=== PATIENT | female | born 1980 | race Caucasian/White ===

== ENCOUNTER → 2016-03-01 | Outpatient (CLI) | payer OTHER ==
--- NOTE | 2016-03-01 11:17 | US ---
Dear Dr. Lee, Thank you for sending your patient, Denice Corona, to us for an US and consultation to assess fet al anatomy. As you know, the patient is a 35 y.o. G1, P0 at 19 weeks and 0 days with an EDC of 07/26/16 based on LMP and 7 week US. Her is complicated by AMA, history of a LEEP, and uterine fibr oids. Denice has an unremarkable past medical and surgical history. 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 This is her first . The patient denies any uterine contractions, vaginal bleeding, or loss of fluid. Today, she is withou t complaints. Genetic Screening: She has had NIPT results this . US FINDINGS: Number of fetuses: 1 Placental location: Anterior, No previa Placental Cord Insertion: Central presentation: Breech Cervix: 4.5 cm without evidence of insufficiency on transvaginal US MVP: 4.1 cm The adnexa were evaluated. No pathology was seen. Right ovary: Normal Left ovary: Normal Fibroid: Left lower uterine segment fibroid immediately to the left of the internal cervical os, 5.7 x 5.6 x 4.2 cm heart rate: 146 bpm Measurements: Biparietal diameter: 39 mm, 18 weeks 0 days Head circumference: 150 mm, 18 weeks 1 days Abdominal circumference: 146 mm, 20 weeks 0 days Femur length: 30 mm, 19 weeks 1 days Humerus length: 27 mm, 18 weeks 6 days Transcerebellar diameter: 20 mm, 19 weeks 3 days Average ultrasound age: 18 weeks 6 days Estimated weight: 288 g weight percentile: 67% ANATOMY Supratentorial brain: Normal Cerebral lateral ventricle: 5 mm Posterior fossa: Normal Cisterna magna: 4 mm Nuchal fold: 3.9 mm Lip: Normal Profile: Normal Alveolar Ridge: Appears intact Spine: -- Cervical: Normal -- Thoracic: Normal -- Lumbar: Normal -- Sacral: Normal Heart: -- 4 Chamber: Normal -- Intraventricular septum: Appears intact by Color and Spectral US -- Right Outflow Tract: Normal -- Left Outflow Tract: Normal -- 3 Vessel View: Normal -- Aortic Arch: Normal -- Ductal Arch: Normal Diaphragm: Appears intact Stomach: Normal Abdominal Umbilical Cord Insertion: Normal Right kidney: Normal Left kidney: Normal Bladder: Normal Number of cord vessels: 3 Upper extremities: -- Right Arm: Normal -- Right Hand: Normal -- Left Arm: Normal -- Left Hand: Normal Lower extremities: -- Right Leg: Normal -- Right Foot: Normal, no club foot -- Left Leg: Normal -- Left Foot: Normal, no club foot IMPRESSION: 1. Anatomy: The fetus measures appropriate for gestational age, measuring a normal weight and percen tile. Visualization of the fetus today reveals no overt structural anomalies. There is evidence of no rmal amniotic fluid, and movement was seen during the examination. 2. Genetic Screening: This patient has had reassuring NIPT results this . Today, no markers of aneuploidy were seen. While her screening and US results are reassuring, we reviewed that fe sophia aneuploidy can only be definitively excluded with diagnostic testing via amniocentesis. After thi s discussion, the patient does not wish to proceed with invasive testing at this time. 3. History of LEEP: The cervical length is reassuring at 4.5 cm without evidence of insufficiency on transvaginal US. No further cervical length assessment is needed unless Denice develops symptoms of labor. 4. Uterine Fibroid: Today, we identified a large uterine fibroid in the left lower uterine segment. W e discussed that the position of this fibroid may increase the risk of malpresentation and may impact the ability of the head to descend beyond the fibroid. Both of these scenarios would res ult in the need for delivery. We also discussed an increased risk of hemorrhage f rom lower uterine segment atony at the time of delivery. - Follow-up US to reassess fibroid size and location and position and growth at 30-32 weeks Thank you again for sending this patient to see us today. Approximately 18 minutes of a total visit t alvaro of 30 minutes were spent with this patient today in direct face to face counseling regarding teresa baker's US findings and the above recommendations. Please feel free to contact me with any questions at . Jaja Madsen MD Maternal- Medicine
--- NOTE | 2016-03-01 12:27 | US ---
Detailed Obstetric Ultrasound March 01, 2016 Indication: 35-year-old 1, para 0 woman presenting for perinatology consultation. c omplicated by advanced maternal age and uterine leiomyomas. The estimated gestational age by previous dating is 19 weeks and 0 days yielding an EDC of July 26, 2016. Comparison: None. Findings: Number: 1 Presentation: Breech. Placental location: Anterior. No previa. Uterus: A heterogeneous 5.7 x 5.6 x 4.2 cm intramural uterine leiomyoma resides in the left lower lower [place] segment near the internal cervical os. Placenta cord insertion: Central Cervix: 4.5 cm (visualized transvaginally). Maximum vertical pocket: 4.1 cm heart rate: 146 bpm Ovaries: Normal size. Left: 2.8 x 2.5 x 1.2 cm. Right: 2.7 x 2.5 x 1.3 cm Biometry: Biparietal diameter: 39 mm 18 weeks, 0 days Head circumference: 150 mm 18 weeks, 1 day Abdominal circumference: 146 mm 20 weeks, 0 days Femur length: 30 mm 19 weeks, 1 day Humerus length: 27 mm 18 weeks, 6 days Transcerebellar diameter: 20 mm 19 weeks, 3 days HC/AC: 1.02 (1.09 - 1.26) FL/BPD: 75% FL/AC: 20% Average ultrasound age: 18 weeks, 6 days EDC based on today's average ultrasound age: July 27, 2016 Estimated weight is 288 grams +/- 42 grams. The estimated weight is at the 67th percentil e based on previous dating. Anatomy Survey: Supratentorial brain: Normal Posterior fossa: Normal Spine: Normal Nuchal fold: Normal; 3.9 mm Nose, palate, and lips: Normal Facial profile: Normal Heart: Four-chamber heart. Intact interventricular septum. Cardiac outflow tracts: Normal Stomach: Normal Umbilical cord insertion: Normal Kidneys: Normal, no pyelectasis Bladder: Normal Number of cord vessels: Three Upper extremities: Normal Lower extremities: Normal. No clubbing. Impression: 1. Living chacon in breech presentation. Size concordant with dates. The estimated ges tational age by biometry is 18 weeks and 6 days yielding an EDC of July 27, 2016. The estimated gestational age by previous dating is 19 weeks and 0 days. 2. Normal anatomy. No anomalies detected. 3. Anterior placenta. No previa. 4. Normal amniotic fluid volume. 5. Intramural uterine leiomyoma in the left lower uterine segment. 6. Please refer to Dr. Madsen's perinatology consultation and recommendations for follow up.
== END ==
LOC: FIMAGING 08:14
PROVIDERS: ATTEND Obstetrics & Gynecology
DX: O09.512 Supervision of elderly primigravida, second trimester (principal); Z3A.19 19 weeks gestation of pregnancy; Z87.59 Personal history of other complications of pregnancy, childbirth and the puerperium

== ENCOUNTER → 2016-05-24 | Outpatient (CLI) | payer OTHER | LOC: FIMAGING 09:28 | PROVIDERS: ATTEND Obstetrics & Gynecology | DX: O09.513 Supervision of elderly primigravida, third trimester (principal); O34.13 Maternal care for benign tumor of corpus uteri, third trimester; Z3A.31 31 weeks gestation of pregnancy ==

== ENCOUNTER 2016-07-22 12:03 | Observation (INO) | payer OTHER | END 2016-07-22 13:25 | disposition home or self-care (01) | LOC: FLD 12:03 | PROVIDERS: ADMIT Obstetrics & Gynecology; ATTEND Obstetrics & Gynecology | DX: Z34.93 Encounter for supervision of normal pregnancy, unspecified, third trimester (principal); Z3A.39 39 weeks gestation of pregnancy | CPT/HCPCS: G0378 ×2 ==

== ENCOUNTER 2016-07-25 04:50 | Inpatient (IN) | payer OTHER ==
[2016-07-25] MEDS ORDERED: LR 1,000 ML IV PRN (06:07)
[2016-07-25] MEDS ORDERED: OLIVE OIL 118 ML BTL MISC PRN (06:07)
[2016-07-25] MEDS ORDERED: EPSOM SALT 454 GM TP PRN (06:07)
[2016-07-25] MEDS ORDERED: OXYTOCIN/RINGERS LACTATE 1,000 ML IV PRN (06:07)
[2016-07-25] MEDS ORDERED: TERBUTALINE SULFATE 1 MG/ML VIAL IV PRN (06:07)
[2016-07-25 06:28] LABS: % IMMATURE GRANULYOCYTES 0.5 % (0.0-1.1); ABSOLUTE IMMATURE GRANULOCYTES 0.06 10^3/uL (0.00-0.10); ADD DIFF? NO; ADD MORPH? NO; ADD SCAN? NO; ATYPICAL LYMPHOCYTE FLAG 0 (0-99); FRAGMENT RBC FLAG 0 (0-99); HEMATOCRIT 43.3 % (38.0-47.0); HEMOGLOBIN 14.8 g/dL (12.6-16.3); LEFT SHIFT FLG 0 (0-99); LIPEMIA HEMOLYSIS FLAG 90 (0-99); MEAN CELL HEMOGLOBIN 31.4 pg (27.9-34.1); MEAN CELL HEMOGLOBIN CONCENTR. 34.2 g/dL (32.4-36.7); MEAN CELL VOLUME 91.9 fL (81.5-99.8); MEAN PLATELET VOLUME 11.2 fL (8.7-11.7); PLATELET CLUMPS FLAG 10 (0-99); PLATELET COUNT 235 10^3/uL (150-400); RED BLOOD CELL COUNT 4.71 10^6/uL (4.18-5.33); RED CELL DISTRIBUTION WIDTH 12.7 % (11.5-15.2)
[2016-07-25] MEDS ORDERED: AMMONIA AROMATIC 1 EACH AMP IH ONE (06:50)
[2016-07-25] MEDS ORDERED: LIDOCAINE 1% 300 MG/30 ML SDV ONE (06:50)
[2016-07-25] MEDS ORDERED: OLIVE OIL 118 ML BTL ONE (06:50)
[2016-07-25] MEDS ORDERED: TERBUTALINE SULFATE 1 MG/ML VIAL ONE (06:50)
[2016-07-25] MEDS ORDERED: OXYTOCIN 10 UNIT/ML VIAL ONE (06:51)
[2016-07-25] MEDS ORDERED: MISOPROSTOL 200 MCG TAB ONE (06:51)
[2016-07-25] MEDS ORDERED: LR 500 ML IV PRN (07:53)
[2016-07-25] MEDS ORDERED: OXYTOCIN/RINGERS LACTATE 500 ML IV SCH (08:00)
--- NOTE | 2016-07-25 09:46 | GHP ---
[f rep st] PREOP HISTORY AND PHYSICAL DATE OF ADMISSION: 07/25/2016 CHIEF COMPLAINT: Rupture of membranes. HISTORY OF PRESENT ILLNESS: The patient is a 35-year-old G1, P0 female, who presents at 39-6/7 weeks' gestation with complaints of rupture of membranes that occurred on 07/24 at around 4-5 p.m. She is having mild irregular contractions. The loss of fluid is clear. She has had slight blood tinge. PAST MEDICAL HISTORY: Significant for history of LEEP. PAST SURGICAL HISTORY: Negative. FAMILY HISTORY: Noncontributory. ALLERGIES: She has no known drug allergies. MEDICATIONS: She is taking vitamins daily. EXAM: VITAL SIGNS: Stable, 107/65 for a blood pressure. Pulse is 88. Respiratory rate is 18. Temperature is 37.5. GENERAL: She is comfortable. ABDOMEN: Gravid. Her cervical exam is 1-2, complete, and 0 station. She is jonny about every 5 minutes. heart tones were in the 120s with moderate variability. LABS: Significant for B positive, antibody screen negative. Rubella immune. RPR nonreactive. Hepatitis B surface antigen negative. HIV negative. Gonorrhea and chlamydia negative. GBS negative. ASSESSMENT/PLAN: A 35-year-old 1, para 0 female, who is at 39-6/7 weeks ' gestation with premature rupture of membranes, has been ruptured for greater than 12 hours. Recommend Pitocin for augmentation of labor to decrease the risk of chorioamnionitis, which the patient agrees to. wellbeing is reassuring. GBS is negative. /[id number]/MODL MTDD
[2016-07-25] MEDS ORDERED: fentaNYL 2MCG/ML/BUP 0.1% RTU 100 ML BAG EP ONE (11:40)
[2016-07-25] MEDS ORDERED: BUPIVACAINE 0.25% 30 ML SDV ONE (11:41)
[2016-07-25] MEDS ORDERED: LIDOCAINE 1% 2 ML INJ ONE (12:05)
[2016-07-25] MEDS ORDERED: fentaNYL 100 MCG/2 ML INJ ONE ×2 (12:14)
[2016-07-25] MEDS ORDERED: SIMETHICONE 80 MG TAB CHEW PO PRN (13:16)
[2016-07-25] MEDS ORDERED: HYDROCORTISONE 0.5% CREAM TP PRN (13:16)
--- NOTE | 2016-07-25 13:16 | OBPROC ---
- Labor and Delivery Onset of Contractions Date: 07/25/16 Onset of Contractions Time: 04:30 Onset of Contractions Type: Augmented Rupture of Membranes Date: 07/24/16 Rupture of Membranes Time: 16:30 Rupture of Membranes Type: Premature Amniotic Fluid Color: Clear Dilation Complete Time: 12:30 Delivery Type: Vacuum (Vaccum applied with 2 pulls, no popoffs due to variable decels to the 60-70s.) Placenta Delivery Date: 07/25/16 Episiotomy/Laceration: 2nd Degree Repair: 3-0, Vicryl EBL: 200 ml Complications: None - Medications Labor Augmentation/Induction Meds Used: Pitocin Labor Augmentation/Induction Indication: Medical (PROM) Anesthesia: Epidural - [place] Info Infant A Delivery Date: 07/25/16 Delivery Time: 12:59 Sex of Infant: Female
[2016-07-25] MEDS: IBUPROFEN 600 MG TAB PO PRN ×2 (14:47→21:01)
[2016-07-25] MEDS ORDERED: LR 500 ML IV SCH (15:00)
[2016-07-26] MEDS: IBUPROFEN 600 MG TAB PO PRN ×4 (04:24→22:36)
--- NOTE | 2016-07-26 08:25 | SOAPPROG ---
SOAP Progress Note Assessment/Plan: Assessment: 35 y.o. female s/p PPD #1. Recovering well with good pain control. . Plan: Routine care. consult. Anticipate discharge tomorrow. 07/26/16 08:22 Subjective: Reports feeling well with good pain control and minimal vaginal bleeding. well with some assistance. Eating and drinking well without nausea or vomiting. Ambulating well without vertigo. Appropriate mood with good support system. Objective: Vital Signs Temp Pulse Resp BP Pulse Ox 36.8 C 66 16 110/74 95 07/25/16 17:10 07/25/16 17:10 07/25/16 17:10 07/25/16 17:10 07/25/16 17:10 Laboratory Results 07/25/16 06:15 07/25/16 07/26/16 07/27/16 05:59 05:59 05:59 Output Total 200 Balance -200 - Time Spent With Patient Time Spent With Patient: 20 minutes - Pending Discharge Pending Discharge Within 24 Hours: Yes Pending Discharge Date: 07/27/16 Pending Discharge Time: 11:00 Physical Exam - Physical Exam General Appearance: WD/WN, alert, no apparent distress EENT: normal ENT inspection Neck: non-tender, full range of motion, normal inspection Respiratory: lungs clear, normal breath sounds Cardiac/Chest: regular rate, rhythm Abdomen: non-tender, soft Pelvic Exam: normal external exam Rectal: deferred Back: Normal inspection Skin: normal color, warm/dry Lymphatic: no adenopathy Extremities: normal range of motion, non-tender Neuro/Psych: alert, normal mood/affect, oriented x 3 ICD10 Worksheet Patient Problems: Problems Problem Status Onset PROM (premature rupture of membranes) Acute
[2016-07-26] MEDS: DOCUSATE SODIUM 100 MG CAP PO PRN ×2 (10:51→22:36)
[2016-07-27] MEDS: IBUPROFEN 600 MG TAB PO PRN ×2 (04:39→14:16)
[2016-07-27] MEDS: HYDROCODONE/APAP 5/325 TAB PO PRN ×3 (05:10→14:17)
--- NOTE | 2016-07-27 08:10 | OBGCSDC ---
General Delivery Information - General Info : 1 Para: 1 Delivery Physician/CNM: eMlissa Lee Admission Date: 07/25/16 Labs: Patient ABO/Rh B POSITIVE 07/25/16 06:15 Hct 43.3 % (38.0-47.0) 07/25/16 06:15 Vaginal - Diagnosis Labor: Augmented Rupture of Membranes Type: Premature Amniotic Fluid Color: Clear Laceration: 2nd Degree Repair: 3-0, Vicryl Delivery Events: None - Operations/Procedures Assisted Delivery Type: Vacuum L&D Analgesia/Anesthesia Type: Epidural, Nitrous - Delivery L&D Analgesia/Anesthesia Type: Epidural, Nitrous Data [place] Delivery Date: 07/25/16 Delivery Time: 12:59 SHANNON: 07/26/16 Gestational Age: 40 week(s) and 1 day(s) Sex of Infant: Female [place] Weight (gm): 3358 g Score (1 Min): 8 Score (5 Min): 9 Discharge Information - Discharge Information Discharge Medications: Ibuprofen, Oxycodone, Vitamins Condition: Good Instruction/Follow Up: Six Weeks Discharge Physician/CNM: Rama Regan
[2016-07-27 08:40] VITALS: BP 120/77; PULSE 80; RESP 18; TEMP 98.2; O2SAT 95
[2016-07-27] MEDS: DOCUSATE SODIUM 100 MG CAP PO PRN (08:57)
== END 2016-07-27 17:00 | disposition home or self-care (01) | DRG 775 ==
LOC: FLD 04:50 → OBSVTOIN 06:07 → FOB 16:06
PROVIDERS: ADMIT Obstetrics & Gynecology; ATTEND Obstetrics & Gynecology
PROC: 0KQM0ZZ Repair Perineum Muscle, Open Approach (ICD-10-PCS; principal; 2016-07-25)
PROC: 10D07Z6 Extraction of Products of Conception, Vacuum, Via Natural or Artificial Opening (ICD-10-PCS; principal; 2016-07-25)
DX: O42.013 Preterm premature rupture of membranes, onset of labor within 24 hours of rupture, third trimester (principal); O76 Abnormality in fetal heart rate and rhythm complicating labor and delivery; O70.1 Second degree perineal laceration during delivery; O09.523 Supervision of elderly multigravida, third trimester; Z3A.39 39 weeks gestation of pregnancy; Z37.0 Single live birth
CPT/HCPCS: J2590; J3010; J3105